=== PATIENT | male | born 1950 | race Caucasian/White ===

== ENCOUNTER 2022-01-30 01:41 | Emergency (ER) | payer OTHER ==
[~2022-01-30] VITALS: Ht 170.2 cm; Wt 70.3 kg
[~2022-01-30 01:41] MED LIST: METF-379 PO
[2022-01-30 01:55] VITALS: BP_SYST 124
[2022-01-30 03:23] LABS: BLOOD, URINE 2+ (NEGATIVE); COLOR,URINE YELLOW (YELLOW); GLUCOSE,URINE NEGATIVE (NEGATIVE); KETONES,URINE NEGATIVE (NEGATIVE); LEUKOCYTE ESTERASE ,URINE TRACE (NEGATIVE); NITRITE, URINE NEGATIVE (NEGATIVE); PH,URINE 5.5 (5.0-8.0); PROTEIN URINE TRACE (NEGATIVE)
[2022-01-30 03:27] LABS: CLARITY/URINE HAZY (CLEAR)
[2022-01-30 03:31] LABS: BILIRUBIN,URINE NEGATIVE (NEGATIVE)
[2022-01-30 03:36] LABS: BACTERIA,URINE FEW /HPF (None Seen); WBC,URINE 0-3 /HPF (0-3)
[2022-01-30 03:37] LABS: CALCIUM OXALATE CRYSTALS,UR 0-10 /HPF (None Seen); MUCUS,URINE None Seen /LPF (None Seen)
[2022-01-30 04:00] VITALS: BP_SYST 121
== END 2022-01-30 04:00 | disposition home or self-care (01) ==
LOC: SED 01:41
DX: R33.9 Retention of urine, unspecified (principal); E11.9 Type 2 diabetes mellitus without complications; Z79.84 Long term (current) use of oral hypoglycemic drugs
CPT/HCPCS: 81000; 99283

== ENCOUNTER 2022-03-02 07:43 | Emergency (ER) | payer OTHER, MEDICARE ==
[~2022-03-02] VITALS: Ht 170.2 cm; Wt 70.3 kg
[2022-03-02 07:43] VITALS: BP_SYST 139
--- NOTE | 2022-03-02 07:48 | NUR ---
TRIAGED AND BROUGHT BACK TO BED #5, WILL ASSUME CARE
--- NOTE | 2022-03-02 08:05 | NUR ---
DR HENSON AT BEDSIDE FOR EVALUATION
--- NOTE | 2022-03-02 08:07 | NUR ---
24 HOURS. PT STATES INABILITY TO URINATE FOR 24 HOURS. PT STATES HE HAS HAD THIS PROBLEM BEFORE AND THEY PLACED A CATHETER. PT WRITHING IN PAIN
--- NOTE | 2022-03-02 08:15 | NUR ---
POOLE CATHETER PLACED, PT TOLERATED IT WELL. +DRAINAGE
--- NOTE | 2022-03-02 08:49 | NUR ---
PT HAS REFUSED TO HAVE BLOOD DRAWN, DR HENSON SPEAKING WITH PT.
--- NOTE | 2022-03-02 08:50 | NUR ---
PT DEMANDING TO HAVE POOLE CATHETER REMOVED. DR HENSON AWARE
[2022-03-02 08:57] LABS: BASOPHILS % (AUTO) 0.8 % (0.0-2.0); EOSINOPHILS % (AUTO) 0.4 % (0.0-4.0); HEMATOCRIT 41.9 % (36-54); HEMOGLOBIN 14.2 g/dL (14.0-18.0); LYMPHOCYTES % (AUTO) 21.8 % (20.5-51.5); MEAN CORPUSCULAR HEMOGLOBIN 30 pg (27-31); MEAN CORPUSCULAR HGB CONC 34 % (32-36); MEAN CORPUSCULAR VOLUME 88 fL (79.0-98.0); MONOCYTES # (AUTO) 0.3 K/uL (0.0-1.0); MONOCYTES % (AUTO) 5.9 % (1.7-9.3); NEUTROPHILS # (AUTO) 3.3 K/uL (1.8-7.7); NEUTROPHILS % (AUTO) 71.1 % (40.0-70.0); PLATELET COUNT (AUTO) 140 K/uL (130-430); RED BLOOD CELL COUNT(AUTO) 4.77 MIL/uL (4.2-6.2); RED CELL DISTRIBUTION WIDTH 13.2 % (9.0-15.0); WHITE BLOOD COUNT (AUTO) 4.6 K/uL (4.8-10.8)
[2022-03-02 09:03] LABS: CALCIUM 8.8 mg/dL (8.4-11.0); CREATININE 0.83 mg/dL (0.55-1.30)
[2022-03-02 09:07] LABS: ALBUMIN 3.9 g/dL (3.4-4.8); TOTAL BILIRUBIN 0.7 mg/dL (0.0-1.0)
--- NOTE | 2022-03-02 09:40 | NUR ---
POOLE CATHETER REMOVED BY DR HENSON. AWAITING FURTHER ORDERS
--- NOTE | 2022-03-02 10:06 | NUR ---
Patient given written and verbal discharge instructions and verbalizes understanding. ER MD discussed with patient the results and treatment provided. Patient in stable condition. ID arm band removed. Rx of NONE given. Patient educated on pain management and to follow up with PMD. Pain Scale 0/10. Opportunity for questions provided and answered. Medication side effect fact sheet provided.
== END 2022-03-02 10:06 | disposition home or self-care (01) ==
LOC: SED 07:43
DX: R33.9 Retention of urine, unspecified (principal); R10.30 Lower abdominal pain, unspecified; E11.9 Type 2 diabetes mellitus without complications; Z88.4 Allergy status to anesthetic agent; Z79.899 Other long term (current) drug therapy
CPT/HCPCS: 36415; 80053; 85025; 99283

== ENCOUNTER 2022-03-09 01:27 | Emergency (ER) | payer OTHER, MEDICARE ==
--- NOTE | 2022-03-09 01:40 | NUR ---
Patient to ER bed 04 to gown for evaluation. Side rails up. Report given to CRISTÓBAL RAMOS.
--- NOTE | 2022-03-09 01:41 | NUR ---
DR. TRIMBLE AT BEDSIDE FOR MSE.
[2022-03-09 01:43] VITALS: BP_SYST 167
--- NOTE | 2022-03-09 01:50 | NUR ---
Pt refuses pain medication and refuses to take any sedatives.
--- NOTE | 2022-03-09 02:00 | NUR ---
Attempted to philippe cath insertion as ordered by ER doctor; however, resistance noted and slow blood return into catheter bag. About 100cc of blood. Notified ER physician.
[2022-03-09] MEDS ORDERED: LIDOCAINE 2% JELLY UROJECT 10 ML MM ONE ×2 (02:08→02:44)
--- NOTE | 2022-03-09 03:00 | NUR ---
14fr coude catheter inserted following sterile guidelines. ER physician and charge nurse at bedside. Blood and urine return noted. 600ml fluid in bag. Bladder ultrasound revealed only 14ml of fluid.
--- NOTE | 2022-03-09 04:35 | NUR ---
Pt back from CT.
--- NOTE | 2022-03-09 04:50 | NUR ---
Pt given bottled water as requested.
[2022-03-09] MEDS ORDERED: CEPH250C PO (06:31)
[2022-03-09] MEDS ORDERED: TAMS-11 PO (06:31)
--- NOTE | 2022-03-09 07:43 | NUR ---
Assisting primary nurse Jose. Patient gives history of emphysema, autism and sensitivities to care. Pt requested to speak with admitting physician about plan of care as soon as possible. Notified primary nurse. Pt gowned up and vital signs affixed. VSS. Bed down, rail up.
[2022-03-09 07:56] LABS: BASOPHILS % (AUTO) 0.7 % (0.0-2.0); EOSINOPHILS % (AUTO) 0.1 % (0.0-4.0); HEMATOCRIT 41.3 % (36-54); HEMOGLOBIN 14.2 g/dL (14.0-18.0); LYMPHOCYTES # (AUTO) 1.2 K/uL (1.0-5.5); LYMPHOCYTES % (AUTO) 22.4 % (20.5-51.5); MEAN CORPUSCULAR HEMOGLOBIN 30 pg (27-31); MEAN CORPUSCULAR HGB CONC 34 % (32-36); MEAN CORPUSCULAR VOLUME 88 fL (79.0-98.0); MONOCYTES # (AUTO) 0.3 K/uL (0.0-1.0); MONOCYTES % (AUTO) 5.3 % (1.7-9.3); NEUTROPHILS # (AUTO) 3.7 K/uL (1.8-7.7); NEUTROPHILS % (AUTO) 71.5 % (40.0-70.0); PLATELET COUNT (AUTO) 139 K/uL (130-430); RED CELL DISTRIBUTION WIDTH 13.6 % (9.0-15.0); WHITE BLOOD COUNT (AUTO) 5.2 K/uL (4.8-10.8)
[2022-03-09 08:09] LABS: BILIRUBIN,URINE NEGATIVE (NEGATIVE); BLOOD, URINE 3+ (NEGATIVE); CLARITY/URINE SL CLOUDY (CLEAR); GLUCOSE,URINE NEGATIVE (NEGATIVE); KETONES,URINE NEGATIVE (NEGATIVE); LEUKOCYTE ESTERASE ,URINE TRACE (NEGATIVE); NITRITE, URINE NEGATIVE (NEGATIVE); PROTEIN URINE 1+ (NEGATIVE); UROBILINOGEN,URINE 0.2 (0.2-1.0)
[2022-03-09 08:10] LABS: CALCIUM 8.7 mg/dL (8.4-11.0); CREATININE 0.75 mg/dL (0.55-1.30)
[2022-03-09 08:14] LABS: ALBUMIN 3.7 g/dL (3.4-4.8); TOTAL BILIRUBIN 0.7 mg/dL (0.0-1.0)
[2022-03-09 08:21] LABS: COLOR,URINE RED (YELLOW)
[2022-03-09 08:22] LABS: BACTERIA,URINE None Seen /HPF (None Seen); RBC,URINE >100 /HPF (0-3)
--- NOTE | 2022-03-09 09:03 | NUR ---
Admit bed requested Patient will be admitted to care of Dr. AMAYA. Admitted to MED SURGE unit. Diagnosis UTI/ UROPATHY Inpatient (Yes or No) YES Observation (Yes or No) NO Orientation concerns or request close to nursing station (Yes or No) NO Covid Status NEG On vent or bipap NO Isolation requirements NO Needs a sitter NO From Home (Yes or if No enter name of facility) HOME Requires Dialysis (Yes or No) NO Med Rec Completed (Yes of No) YES
--- NOTE | 2022-03-09 09:13 | NUR ---
Pt states primary concern is his emotional burden pt has dealt with for 50years. Pt states secondary concern is his urinary tract infection and requests to leave against medical advice. Notified primary RN Jose and MD Stephens.
--- NOTE | 2022-03-09 09:21 | NUR ---
PT REQUESTED POOLE CATHTER TO BE REMOVED
--- NOTE | 2022-03-09 09:22 | NUR ---
PT TALKED TO DR SNYDER, AND WANTS TO GO HOME AGAINST MEDICAL ADVICE (AMA). PT SIGNED AMA.
[2022-03-09 09:41] VITALS: BP_SYST 135
--- NOTE | 2022-03-09 09:42 | NUR ---
Patient does not wish to proceed with medical care recommended by DR INGRAM. Patient given information related to possible complications, up to and including , which could occur as a result of leaving hospital at this time. Patient verbalizes understanding of risks involved leaving against medical advice. Patient has signed AMA form.
[2022-03-10] MEDS ORDERED: TAMSULOSIN HCL 0.4 MG CAP PO SCH (09:00)
== END 2022-03-09 09:41 | disposition left against medical advice (07) ==
LOC: SED 01:27 → UNDOADMIN 09:01 → SMU 09:01 → UNDODISIN 03-12 09:42
DX: N39.0 Urinary tract infection, site not specified (principal); R31.9 Hematuria, unspecified; N40.0 Benign prostatic hyperplasia without lower urinary tract symptoms; E11.9 Type 2 diabetes mellitus without complications; Z79.899 Other long term (current) drug therapy; Z20.822 Contact with and (suspected) exposure to COVID-19
CPT/HCPCS: 36415; 76376; 80053; 81000; 85025; 99285; J1956